=== PATIENT | female | born 1990 | race African-American/Black ===

== ENCOUNTER 2017-04-27 19:27 | Emergency (ER) | payer OTHER ==
[~2017-04-27] VITALS: Ht 165.1 cm; Wt 72.6 kg
[~2017-04-27 19:27] MED LIST: ALBUTEROL2.5 MG/0.5 INH; ASPIR 8181 MG PO; ENOXAPARIN80 MG/0.1 SUBQ; SYMBICORT160 MCG/4.
[2017-04-27 20:49] LABS: ABSOLUTE NEUTROPHILS 3.8 thou/uL (1.4-8.2); BASOPHILS 0.3 % (0.0-2.0); EOSINOPHILS 0.5 % (0.0-3.0); HEMATOCRIT 42.9 % (37.0-47.0); HEMOGLOBIN 14.6 gm/dL (12.0-15.0); LYMPHOCYTES 18.1 % (24.0-44.0); MCH 28.5 pg (26.0-34.0); MCHC 34.1 g/dL (28.0-37.0); MCV 83.4 fL (80.0-100.0); PLATELET COUNT 225 thou/uL (150-400); POLYS 73.1 % (36.0-66.0); RBC 5.14 mil/uL (4.20-5.00); RDW 15.4 % (10.5-14.5); WBC 5.2 thou/uL (4.0-11.0)
[2017-04-27 20:50] LABS: MANUAL DIFF NO
[2017-04-27 21:06] LABS: CALCIUM 9.2 mg/dL (8.5-10.1); CREATININE 0.9 mg/dL (0.6-1.0); POTASSIUM 3.2 mmol/L (3.5-5.1)
[2017-04-27 21:12] LABS: ALBUMIN 4.4 g/dL (3.4-5.0); TOTAL BILIRUBIN 0.8 mg/dL (<0.1-1.0); TOTAL PROTEIN 8.9 g/dL (6.4-8.2)
[2017-04-27] MEDS ORDERED: PROAIR HFA8.5 GM INH (21:13)
[2017-04-27 21:34] LABS: URINE BLOOD 1+ (Negative); URINE COLOR YELLOW; URINE GLUCOSE-RANDOM* NEGATIVE (Negative); URINE KETONES TRACE (Negative); URINE NITRITE NEGATIVE (Negative); URINE PROTEIN (DIPSTICK) TRACE (Negative); URINE SPECIFIC GRAVITY >= 1.030 (1.003-1.035); URINE UROBILINOGEN 0.2 E.U./dl (0.2-1.0)
[2017-04-27 21:37] LABS: ICTOTEST (BILI CONFIRMATORY) Negative (Negative); URINE BILIRUBIN NEGATIVE (Negative)
[2017-04-27 21:50] LABS: BACTERIA >30 Many /HPF (None Seen); CASTS None Seen /LPF (None Seen); SQUAMOUS >10 Many /LPF (0-3); URINE WBC 0-5 Rare /HPF (0-5)
[2017-04-27 21:51] LABS: CRYSTALS None Seen /LPF (None Seen); URINE RBC 0-2 Rare /HPF (0-2)
[2017-04-27] MEDS ORDERED: PHENERGAN 25 MG25 M1 PO (22:06)
[2017-04-27 22:28] VITALS: BP 123/73
== END 2017-04-27 22:40 | disposition home or self-care (01) ==
LOC: ER 19:27
PROVIDERS: Physician Assistant
DX: R11.2 Nausea with vomiting, unspecified (principal); J45.909 Unspecified asthma, uncomplicated; Z90.49 Acquired absence of other specified parts of digestive tract; Z86.73 Personal history of transient ischemic attack (TIA), and cerebral infarction without residual deficits

== ENCOUNTER 2017-10-02 07:44 | Emergency (ER) | payer OTHER ==
[~2017-10-02] VITALS: Ht 165.1 cm; Wt 68.0 kg
[~2017-10-02 07:44] MED LIST changes: +PHENERGAN 25 MG25 M1 PO; +PROAIR HFA8.5 GM INH
[2017-10-02 08:52] LABS: BASOPHILS 0.3 % (0.0-2.0); EOSINOPHILS 0.6 % (0.0-3.0); HEMATOCRIT 41.6 % (37.0-47.0); HEMOGLOBIN 13.9 gm/dL (12.0-15.0); LYMPHOCYTES 5.8 % (24.0-44.0); MCHC 33.5 g/dL (28.0-37.0); MCV 83.5 fL (80.0-100.0); MONOCYTES 3.1 % (1.0-8.0); PLATELET COUNT 211 thou/uL (150-400); POLYS 90.2 % (36.0-66.0); RBC 4.98 mil/uL (4.20-5.00); RDW 14.8 % (10.5-14.5); WBC 7.8 thou/uL (4.0-11.0)
[2017-10-02 08:59] LABS: URINE BILIRUBIN NEGATIVE (Negative); URINE BLOOD 1+ (Negative); URINE CLARITY CLEAR; URINE COLOR YELLOW; URINE GLUCOSE-RANDOM* NEGATIVE (Negative); URINE KETONES NEGATIVE (Negative); URINE LEUKOCYTES-REFLEX NEGATIVE (Negative); URINE NITRITE-REFLEX NEGATIVE (Negative); URINE PROTEIN (DIPSTICK) NEGATIVE (Negative); URINE UROBILINOGEN 0.2 E.U./dl (0.2-1.0)
[2017-10-02 09:01] LABS: CALCIUM 8.5 mg/dL (8.5-10.1); CREATININE 0.7 mg/dL (0.6-1.0); POTASSIUM 3.9 mmol/L (3.5-5.1)
[2017-10-02 09:07] LABS: TOTAL BILIRUBIN 0.6 mg/dL (<0.1-1.0); TOTAL PROTEIN 7.6 g/dL (6.4-8.2)
[2017-10-02] MEDS ORDERED: ZOFRAN ODT8 MG PO (09:17)
[2017-10-02 09:23] LABS: SQUAMOUS >10 Many /LPF (0-3)
[2017-10-02 09:25] LABS: CASTS None Seen /LPF (None Seen); CRYSTALS None Seen /LPF (None Seen)
[2017-10-02 09:26] LABS: URINE RBC 0-2 Rare /HPF (0-2); URINE WBC-REFLEX 6-15 Few /HPF (0-5)
[2017-12-10] MEDS ORDERED: BUTALB-APAP-CA1 EACH PO ×2 (21:54→21:57)
== END 2017-10-02 09:42 | disposition home or self-care (01) ==
LOC: ER 07:44 → EDBD 07:44 → ER 07:44
PROVIDERS: Emergency Medicine
DX: R19.7 Diarrhea, unspecified (principal); R11.2 Nausea with vomiting, unspecified; R51 Headache; J45.909 Unspecified asthma, uncomplicated; Z90.49 Acquired absence of other specified parts of digestive tract

== ENCOUNTER 2018-06-23 18:44 | Emergency (ER) | payer OTHER ==
[~2018-06-23] VITALS: Ht 165.1 cm; Wt 72.6 kg
--- NOTE | ~2018-06-23 | EKG ---
[place] [address] [facility] [place] [address] ELECTROCARDIOGRAM REPORT Name: WILLIAM IGLESIAS [id number] Admission: 06/23/18 Attend Phys: Discharge: 06/23/18 Date of : [birth year] Report #: [id number] THIS REPORT FOR: //name// [facility] ED Test Date: 2018-06-23 Test Time: 19:51:01 Pat Name: WILLIAM IGLESIAS Department: Room: Gender: F Binder Lockstitch: ALICIA : 1990 Requested By: Deepika Bacon Order Number: [id number] MD: Valdez Anderson Measurements Intervals [place] Rate: 99 P: 77 AL: 127 QRS: 49 QRSD: 82 T: 29 QT: 344 QTc: 442 Interpretive Statements Sinus rhythm RSR' in V1 or V2, right VCD Baseline wander in lead(s) V1 Compared to ECG 12/13/2015 19:07:52 No significant change was found Electronically Signed On 06-24-2018 7:35:17 CAGE MAKER by Valdez Anderson [email or web address] <ELECTRONICALLY SIGNED> By: Valdez Anderson MD, [facility] 06/24/18 0735 50 50 Valdez Anderson MD, [facility] /EPI
[~2018-06-23 18:44] MED LIST changes: +BUTALB-APAP-CA1 EACH PO; +ZOFRAN ODT8 MG PO
[2018-06-23 19:12] LABS: URINE BILIRUBIN NEGATIVE (Negative); URINE BLOOD 3+ (Negative); URINE CLARITY CLEAR; URINE COLOR YELLOW; URINE GLUCOSE-RANDOM* NEGATIVE (Negative); URINE KETONES 1+ (Negative); URINE LEUKOCYTES NEGATIVE (Negative); URINE NITRITE NEGATIVE (Negative); URINE PROTEIN (DIPSTICK) NEGATIVE (Negative); URINE SPECIFIC GRAVITY >= 1.030 (1.005-1.035); URINE UROBILINOGEN 0.2 E.U./dl (0.2-1.0)
[2018-06-23 19:23] LABS: SQUAMOUS >10 Many /LPF (0-3)
[2018-06-23 19:24] LABS: CASTS None Seen /LPF (None Seen); CRYSTALS None Seen /LPF (None Seen); URINE RBC 3-10 Few /HPF (0-2); URINE WBC 0-5 Rare /HPF (0-5)
[2018-06-23 19:34] LABS: HEMATOCRIT 43.6 % (37.0-47.0); HEMOGLOBIN 15.3 gm/dL (12.0-15.0); MCH 29.3 pg (26.0-34.0); MCHC 35.1 g/dL (28.0-37.0); MCV 83.6 fL (80.0-100.0); PLATELET COUNT 204 thou/uL (150-400); RBC 5.22 mil/uL (4.20-5.00); RDW 13.9 % (10.5-14.5)
[2018-06-23 19:42] LABS: CALCIUM 8.9 mg/dL (8.5-10.1); CREATININE 0.9 mg/dL (0.6-1.0); POTASSIUM 3.6 mmol/L (3.5-5.1)
[2018-06-23 19:48] LABS: ALBUMIN 4.2 g/dL (3.4-5.0); TOTAL BILIRUBIN 0.7 mg/dL (<0.1-1.0); TOTAL PROTEIN 8.5 g/dL (6.4-8.2)
[2018-06-23 20:22] LABS: ABSOLUTE NEUTROPHILS 2.7 thou/uL (1.4-8.2)
== END 2018-06-23 22:12 | disposition home or self-care (01) ==
LOC: EDBD 18:44 → ER 18:44
PROVIDERS: Emergency Medicine
DX: R00.2 Palpitations (principal); R07.9 Chest pain, unspecified; R51 Headache; J45.909 Unspecified asthma, uncomplicated; Z90.49 Acquired absence of other specified parts of digestive tract

== ENCOUNTER 2019-07-09 13:38 | Emergency (ER) | payer OTHER ==
[~2019-07-09] VITALS: Ht 165.1 cm; Wt 68.0 kg
[2019-07-09 14:09] LABS: ABSOLUTE NEUTROPHILS 3.7 thou/uL (1.4-8.2); BASOPHILS 0.5 % (0.0-2.0); EOSINOPHILS 1.7 % (0.0-3.0); HEMOGLOBIN 13.6 gm/dL (12.0-15.0); LYMPHOCYTES 35.4 % (24.0-44.0); MCH 28.2 pg (26.0-34.0); MCHC 33.1 g/dL (28.0-37.0); MONOCYTES 11.1 % (1.0-8.0); PLATELET COUNT 218 thou/uL (150-400); POLYS 51.3 % (36.0-66.0); RBC 4.82 mil/uL (4.20-5.00); RDW 13.6 % (10.5-14.5); WBC 7.1 thou/uL (4.0-11.0)
[2019-07-09 14:19] LABS: ANION GAP 10 mmol/L (7-16); BUN 17 mg/dL (7-18); CALCIUM 9.8 mg/dL (8.5-10.1); CHLORIDE 102 mmol/L (98-107); CO2 26 mmol/L (21-32); CREATININE 0.8 mg/dL (0.6-1.0); GLUCOSE 92 mg/dL (74-106); POTASSIUM 3.8 mmol/L (3.5-5.1); SODIUM 138 mmol/L (136-145)
[2019-07-09 14:27] LABS: SGOT 15 U/L (15-37); SGPT 27 U/L (30-65); TOTAL BILIRUBIN 0.3 mg/dL (<0.1-1.0); TOTAL PROTEIN 8.1 g/dL (6.4-8.2); TROPONIN-I <0.06 ng/mL (<0.06)
[2019-07-09] MEDS ORDERED: PROAIR HFA8.5 GM INH (15:18)
[2019-07-09] MEDS ORDERED: BENZONATATE200 MG PO (15:18)
[2019-07-09 15:46] VITALS: BP 106/57
--- NOTE | 2019-07-10 09:17 | EKG ---
[place] [address] [place] [address] ELECTROCARDIOGRAM REPORT Name: WILLIAM IGLESIAS [id number] Admission: 07/09/19 Attend Phys: Discharge: 07/09/19 Date of : [birth year] Report #: [id number] THIS REPORT FOR: //name// [facility] ED Test Date: 2019-07-09 Test Time: 13:40:52 Pat Name: WILLIAM IGLESIAS Department: Room: Gender: F Dress Designer: KIMBERLY : 1990 Requested By: Carlin Joaquin Order Number: [id number] MD: Valdez Anderson Measurements Intervals [place] Rate: 101 P: 79 TX: 131 QRS: 82 QRSD: 83 T: 30 QT: 334 QTc: 433 Interpretive Statements Sinus tachycardia RSR' in V1 or V2, probably normal variant Baseline wander in lead(s) V1 Compared to ECG 06/23/2018 19:51:01 No significant change was found Electronically Signed On 07-10-2019 9:16:50 SATURATOR by Valdez Anderson [email or web address] <ELECTRONICALLY SIGNED> By: Valdez Anderson MD, [facility] 07/10/19 0916 1340 1340 Valdez Anderson MD, [facility] /EPI
== END 2019-07-09 15:46 | disposition home or self-care (01) ==
LOC: ER 13:38
PROVIDERS: Emergency Medicine
DX: J06.9 Acute upper respiratory infection, unspecified (principal); R07.89 Other chest pain; J45.909 Unspecified asthma, uncomplicated; Z90.49 Acquired absence of other specified parts of digestive tract; Z86.73 Personal history of transient ischemic attack (TIA), and cerebral infarction without residual deficits